=== PATIENT | female | born 1985 | race Caucasian/White ===

== ENCOUNTER 2018-11-27 06:56 | Day surgery (SDC) | payer OTHER ==
[~2018-11-27 06:56] MED LIST: CEFAZOLIN 2 GM/50 ML (PMX) 50 ML IVPB
[2018-11-27] MEDS ORDERED: CEFAZOLIN 2 GM/50 ML (PMX) 50 ML IVPB (10:00)
[2018-11-27] MEDS ORDERED: LABETALOL HCL 20MG INJ IV (10:30)
[2018-11-27] MEDS ORDERED: FENTAnyl 50 MCG/ML VIAL IV ×2 (10:30)
[2018-11-27] MEDS ORDERED: HYDROmorphONE 1 MG/5 ML IV SYRINGE IV (10:30)
[2018-11-27] MEDS ORDERED: hydrALAzine 20 MG INJ IV (10:30)
[2018-11-27] MEDS ORDERED: FENTAnyl 50 MCG/ML VIAL ×2 (10:36→11:42)
[2018-11-27] MEDS ORDERED: CEFAZOLIN 1 GM INJ (10:36)
[2018-11-27] MEDS ORDERED: DEXAMETHASONE 4 MG/ML 5 ML INJ (10:36)
[2018-11-27] MEDS ORDERED: LIDOCAINE 100 MG SYRINGE (10:36)
[2018-11-27] MEDS ORDERED: ONDANSETRON 4 MG INJ (10:36)
[2018-11-27] MEDS ORDERED: MIDAZOLAM 1 MG/ML 2 ML INJ (10:36)
[2018-11-27] MEDS ORDERED: SUCCINYLCHOLINE CHLORIDE 100 MG/5 ML SYG IV (10:36)
[2018-11-27] MEDS ORDERED: PROPOFOL 20 ML (10:36)
[2018-11-27] MEDS ORDERED: POLYMYXIN/BACITRACIN 1L IRRIG (10:36)
[2018-11-27] MEDS ORDERED: ROCURONIUM 50 MG INJ (10:36)
[2018-11-27] MEDS ORDERED: SUGAMMADEX SODIUM 200 MG/2 ML VIAL IV (10:37)
[2018-11-27] MEDS ORDERED: CLINDAMYCIN 2% 40 GM VAG CR VAG (12:30)
[2018-11-27] MEDS: LIDOCAINE 1%/EPI (1:100,000) (MDV) 20 ML (13:05)
[2018-11-27] MEDS: METOCLOPRAMIDE 10 MG INJ IV (13:19)
[2018-11-27] MEDS: MEPERIDINE 25 MG INJ IV (13:40)
[2018-11-27] MEDS: ONDANSETRON 4 MG INJ IV (13:40)
[2018-11-27] MEDS: HYDROmorphONE 1 MG/5 ML IV SYRINGE IV (15:21)
== END 2018-11-27 16:18 | disposition home or self-care (01) ==
LOC: SDS 06:56
DX: N81.10 Cystocele, unspecified (principal); N39.3 Stress incontinence (female) (male)
CPT/HCPCS: 57240; 71045; 93005